=== PATIENT | male | born 1995 | race African-American/Black ===

== ENCOUNTER 2018-04-16 11:57 | Emergency (ER) | payer OTHER ==
[~2018-04-16] VITALS: Ht 185.4 cm; Wt 100.0 kg
[2018-04-16] MEDS ORDERED: DIVA-76 PO (12:07)
[2018-04-16] MEDS ORDERED: OLAN7.5T2 PO (12:07)
[2018-04-16] MEDS ORDERED: ARIP5TAB8 PO (12:07)
[2018-04-16 13:07] VITALS: BP 148/75
== END 2018-04-16 13:10 | disposition home or self-care (01) ==
LOC: EMS 11:59
DX: F41.9 Anxiety disorder, unspecified (principal); F43.9 Reaction to severe stress, unspecified; R25.2 Cramp and spasm
CPT/HCPCS: 99283; 99284